=== PATIENT | female | born 1945 | race American Indian/Alaskan Native ===

== ENCOUNTER 2018-04-28 08:11 | Observation (INO) | payer MEDICARE ==
[2018-04-28] MEDS ORDERED: ECOTRIN PO ONE (08:30)
[2018-04-28] MEDS ORDERED: NACL 0.9% 500 ML 500 ML IV SCH (09:00)
[2018-04-28 09:17] LABS: Basophils % (Auto) 0.9 % (0.0-1.8); Eosinophils # (Auto) 0.5 K/mm3 (0.0-0.4); Eosinophils % (Auto) 9.7 % (0.0-4.3); Hematocrit 37.9 % (30.3-42.9); Hemoglobin 12.5 gm/dl (10.1-14.3); Lymphocytes # (Auto) 1.4 K/mm3 (1.2-5.4); Lymphocytes % (Auto) 25.6 % (13.4-35.0); Mean Corpuscular HGB Conc 33 % (30-34); Mean Corpuscular Volume 88 fl (79-97); Monocytes # (Auto) 0.8 K/mm3 (0.0-0.8); Monocytes % (Auto) 13.7 % (0.0-7.3); Platelet Count 334 K/mm3 (140-440); Red Cell Distribution Width 13.2 % (13.2-15.2)
[2018-04-28 09:32] LABS: BUN/Creatinine Ratio 29; Blood Urea Nitrogen 23 mg/dL (7-17); Calcium 9.7 mg/dL (8.4-10.2); Hemolysis Index 258
[2018-04-28 09:48] LABS: INR 0.93 (0.87-1.13)
[2018-04-28] MEDS ORDERED: NITROGLYCERIN SYRINGE 3 ML ONE ×2 (10:26→12:03)
[2018-04-28] MEDS ORDERED: HEPARIN/NS 5000 UNIT/500ML(CATH LAB) 1,000 ML IR ONE (10:26)
[2018-04-28] MEDS ORDERED: XYLOCAINE 2% INFILTRATI ONE (10:26)
[2018-04-28] MEDS ORDERED: CALAN ONE (10:26)
[2018-04-28] MEDS ORDERED: SUBLIMAZE ONE (10:27)
[2018-04-28] MEDS ORDERED: VERSED ONE (10:27)
[2018-04-28] MEDS: HEPARIN 10,000 UNITS/10 ML ONE ×2 (11:48→12:04)
[2018-04-28] MEDS ORDERED: BRILINTA ONE (12:25)
[2018-04-28] MEDS ORDERED: ALUM-MAG HYDROX-SIMETH 200-200-20MG/5ML ONE (12:25)
[2018-04-28] MEDS ORDERED: AMBIEN PO PRN (12:49)
[2018-04-28] MEDS ORDERED: TYLENOL PO PRN (12:49)
[2018-04-28] MEDS ORDERED: ZOFRAN IV PRN (12:49)
[2018-04-28] MEDS ORDERED: NON-FORMULARY (Losartan/Hydrochlorothiazide [Losartan-Hctz 100-25 Mg Tab] 1 TAB) PO SCH (13:00)
[2018-04-28] MEDS ORDERED: NACL 0.9% 1000 ML 1,000 ML IV SCH (13:00)
--- NOTE | 2018-04-28 13:12 | Cardiac Catherization Report ---
CARDIAC CATHETERIZATION AND CORONARY ANGIOPLASTY REASON FOR PROCEDURE: The patient is a 73-year-old woman with coronary artery disease who underwent coronary stenting of the circumflex in the remote past. She presented to our office recently with a progressive exertional dyspnea and uncontrolled hypertension. Due to her unstable symptoms, she was recommended for hospital admission, which she declined, and presents today for an outpatient cardiac catheterization. PROCEDURE: 1. Right heart catheterization. 2. Left heart catheterization. 3. Selective left and right coronary angiography. 4. Left ventricle angiography. 5. Coronary angioplasty and stent deployment to the right coronary artery. 6. Sedation start time 11:28, end time 12:19. The patient was prepped and draped in a sterile fashion after informed consent. Right femoral artery and vein were both entered using the Seldinger technique followed by placement of a 6-Gambian sheath in the artery and a 7-Gambian sheath in the vein. We then advanced a [place]-Ghanshyam catheter to the pulmonary artery position. Cardiac output was measured using the thermodilution method. A pigtail catheter was advanced to the left ventricle. Simultaneous right and left heart filling pressures were then measured. This [place]-Ghanshyam was then withdrawn and right heart pressures recorded on pullback. The left ventricle angiography was then performed following which a pigtail catheter was withdrawn and transaortic gradient recorded. Selective left and right coronary angiography was then performed. FINDINGS: HEMODYNAMICS: Mean right atrial pressure was 8. Right ventricular pressure was 45/10. Pulmonary artery pressure was 45/20. The mean pulmonary artery wedge pressure was 12. Left ventricular end-diastolic pressure was 12. Ascending aortic pressure 145/71. There was no significant pressure gradient on pullback across the aortic valve. Cardiac output was 3.8 liters per minute. CORONARY ANGIOGRAPHY: There was oype-rk-xeyhcyhy coronary calcification, chiefly involving the proximal left anterior descending artery. The left main coronary artery contained mild luminal irregularities. There was mild atherosclerosis of the proximal to mid LAD, with an up to 20-30% luminal stenosis. A large ramus intermedius artery contained mild diffuse atherosclerosis. The circumflex artery was notable for a stent in its proximal AV groove segment. This stent was widely patent with minimal to no significant instent restenosis. Beyond the proximal stent, the mid to distal LAD was notable for severe, diffuse de eileen disease with an up to 85-90% luminal stenosis before its termination into a medium sized terminal obtuse marginal. The right coronary artery was dominant. This vessel contained a 99-100% occlusion of its mid segment, with a markedly delayed antegrade flow, and also the presence of faint collaterals from the left coronary system perfusing the distal vessel. The left ventricle was moderately dilated. There was dbubcxjy-io-bujcza left ventricular systolic dysfunction, ejection fraction estimated at 35%. CORONARY ANGIOPLASTY: Ad hoc coronary angioplasty was recommended to the mid right coronary artery occlusion. We selected a #4 right Harry guiding catheter and advanced to the right coronary ostium. A 0.014 inch Cutting Machine Tender Decorative 50 guidewire was used to successfully penetrate the occluded vessel. Following wire placement, a 2.5 mm balloon catheter was used to predilate the vessel and reestablish ELIZABETH 3 flow. We then deployed a 2.75 x 15 mm Resolute drug-eluting stent, covering the mid segment occlusion. This stent was deployed to optimal pressures. Following optimal treatment of the mid primary occlusion, we noted significant secondary lesions, located in the proximal vessel as well as the distal AV groove vessel after the right posterior descending branch. In the primary stenting maneuver, we then deployed a 3.0 x 18 mm drug-eluting stent to the proximal stenosis, and the proximal disease was treated successfully with a residual 0% stenosis. We then turned our attention to the distal disease, where 2 sequential 2.5 x 8 mm Resolute stents were then deployed, to treat the distal lesion with an excellent angiographic result at this third site. We did note a 50% stenosis of the vessel at the acute margin, which is recommended for conservative management, no additional stents were deployed to this nonobstructive disease. Procedure was well tolerated by the patient and there were no complications. In recognition of contrast load for the diagnostic procedure and the complex intervention to the right coronary artery, we will stage second vessel intervention of the circumflex stenosis, which will be done on a subsequent date. CONCLUSION: 1. Normal right and left heart filling pressures, mild pulmonary hypertension. 2. Severe multivessel coronary artery disease. 3. Patent prior proximal circumflex artery stent. 4. 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 5. Ischemic cardiomyopathy, with wabnjtwe-gi-cttwke left ventricular systolic dysfunction, ejection fraction 35%. 6. Successful ad hoc angioplasty and stenting of the right coronary artery with additional stents in the mid segment, proximal segment and distal AV groove segment. The patient will be recommended for staged, second vessel coronary intervention to the mid distal circumflex artery. JOB# [id number] VERN/NTS
[2018-04-28] MEDS ORDERED: COZAAR PO SCH (14:00)
[2018-04-28] MEDS ORDERED: IMDUR PO SCH (14:00)
[2018-04-28] MEDS ORDERED: HCTZ PO SCH (14:00)
[2018-04-28] MEDS ORDERED: PROCARDIA XL PO SCH (14:00)
[2018-04-28] MEDS ORDERED: TYLENOL ONE (16:55)
[2018-04-28] MEDS: TOPROL XL PO SCH (21:50)
[2018-04-28] MEDS: BRILINTA PO SCH (21:50)
[2018-04-29 05:45] LABS: Basophils % (Auto) 0.6 % (0.0-1.8); Eosinophils # (Auto) 0.3 K/mm3 (0.0-0.4); Eosinophils % (Auto) 4.8 % (0.0-4.3); Hematocrit 39.1 % (30.3-42.9); Hemoglobin 13.2 gm/dl (10.1-14.3); Lymphocytes # (Auto) 1.3 K/mm3 (1.2-5.4); Lymphocytes % (Auto) 23.2 % (13.4-35.0); Mean Corpuscular HGB Conc 34 % (30-34); Mean Corpuscular Volume 88 fl (79-97); Monocytes # (Auto) 0.7 K/mm3 (0.0-0.8); Monocytes % (Auto) 11.4 % (0.0-7.3); Red Blood Count 4.42 M/mm3 (3.65-5.03); Red Cell Distribution Width 13.8 % (13.2-15.2)
[2018-04-29 05:50] LABS: Platelet Count 342 K/mm3 (140-440)
[2018-04-29 06:06] LABS: Creatine Kinase MB 6.1 ng/mL (0.0-4.0)
[2018-04-29 06:07] LABS: BUN/Creatinine Ratio 20; Blood Urea Nitrogen 16 mg/dL (7-17); Calcium 9.8 mg/dL (8.4-10.2); Hemolysis Index 2
--- NOTE | 2018-04-29 08:19 | XRay Report ---
PORTABLE CHEST INDICATION: Post PCI. COMPARISON: None similar. FINDINGS: Portable, frontal chest radiograph suggests slight exaggerated heart size/borderline cardiomegaly. Aortic knob calcifications. Grossly unremarkable deborah. Right hemidiaphragm minimally higher than the left. No pleural effusions or CHF. Subtle left paraspinal/retrocardiac density medially not entirely excluded for aortic tortuosity versus a hiatal hernia, amongst others. Approximately 2.4 cm vague/nonspecific right upper lobe opacity or medial end of the right clavicle overlapping. EKG leads. Demineralized bones with few degenerative changes. CONCLUSION: No acute chest process with few other findings as vague/nonspecific right upper lobe and left medial lung base opacities, as described that may be further evaluated on direct comparison with prior chest imaging, if available from another institution, including CT, as warranted. Thank you for the opportunity to participate in this patient's care.
--- NOTE | 2018-04-29 09:28 | Short Stay Summary ---
Short Stay Documentation Date of service: 04/29/18 - History H&P: obtained from office - Allergies and Medications Current Medications: Allergies codeine Allergy (Unverified 04/28/18 08:12) Headache Home Medications Medication Instructions Recorded Confirmed Last Taken Type Aspirin 1 tab PO DAILY 01/16/16 04/28/18 04/28/18 07:00 History 81m,g ISOSORBIDE MONOnitrate [Imdur ER] 30 mg PO DAILY 04/28/18 04/28/18 04/27/18 History 30mg Losartan/Hydrochlorothiazide 1 tab PO DAILY 04/28/18 04/28/18 04/27/18 History [Losartan-Hctz 100-25 mg Tab] 1 tab Metoprolol Xl [Metoprolol 50 mg PO BID 04/28/18 04/28/18 04/28/18 07:00 History SUCCINATE ER TAB] 50mg NIFEdipine [Nifedipine ER] 60 mg PO DAILY 04/28/18 04/28/18 04/27/18 History 60mg Active Medications Acetaminophen (Tylenol) 650 mg PO Q4H PRN PRN Reason: Pain MILD(1-3)/Fever >100.5/SEO Last Admin: 04/28/18 17:00 Dose: 650 mg Documented by: Aspirin (Baby Aspirin) 81 mg PO QDAY [facility] Hydrochlorothiazide (Hctz) 25 mg PO QDAY [facility] Isosorbide Mononitrate (Imdur) 30 mg PO DAILY [facility] Losartan Potassium (Cozaar) 100 mg PO QDAY [facility] Metoprolol Succinate (Toprol Xl) 50 mg PO BID [facility] Last Admin: 04/28/18 21:50 Dose: 50 mg Documented by: Nifedipine (Procardia Xl) 60 mg PO DAILY [facility] Ondansetron HCl (Zofran) 4 mg IV Q8H PRN PRN Reason: N/V unrelieved by Reglan Ticagrelor (Brilinta) 90 mg PO BID [facility] Last Admin: 04/28/18 21:50 Dose: 90 mg Documented by: Zolpidem Tartrate (Ambien) 5 mg PO QHS PRN PRN Reason: Sleep Last Admin: 04/28/18 21:53 Dose: 5 mg Documented by: - Physical exam General appearance: no acute distress HEENT: PERRLA Lungs: Clear to auscultation Heart: Regular rate - Brief post op/procedure progress note Condition: stable - Hospital course Hospital course: Stable overnight observation. - Disposition Condition at discharge: Good Disposition: [id number] TO HOME OR SELFCARE Short Stay Discharge Plan Activity: advance as tolerated Diet: low fat, low cholesterol, low salt Wound: keep clean and dry Special Instructions: no heavy lifting Follow up with: BELKIS ALVARADO MD [Primary Care Provider] - 7 Days ELIZABETH HOWARD MD [Staff Physician] - 7 Days Prescriptions: Ticagrelor [Brilinta] 90 mg PO BID #60 tablet
[2018-04-29 09:34] VITALS: BP 140/81
[2018-04-29] MEDS: TOPROL XL PO SCH (09:44)
[2018-04-29] MEDS: BRILINTA PO SCH (09:46)
[2018-04-29] MEDS ORDERED: BABY ASPIRIN PO SCH (10:00)
== END 2018-04-29 13:30 | disposition home or self-care (01) ==
LOC: CATHLABREC 08:11 → 4A 12:49
PROVIDERS: ADMIT Internal Medicine Cardiovascular Disease; ATTEND Internal Medicine Cardiovascular Disease
DX: I25.10 Atherosclerotic heart disease of native coronary artery without angina pectoris (principal); I25.5 Ischemic cardiomyopathy; Z95.5 Presence of coronary angioplasty implant and graft; Z88.5 Allergy status to narcotic agent
CPT/HCPCS: 36415; 71045; 80048; 82550; 82553; 84132; 84484; 85025; 85347; 85610; 85730; 93005; 93010; 93460; C1725; C1760; C1769; C1874; C1887; C1894; C9600; G0378; J1644; J2250; J3010; J7040; 92928; Q9967